=== PATIENT | female | born 1975 | race Two or more races ===

== ENCOUNTER 2017-09-02 17:13 | Emergency (ER) | payer SELFPAY ==
[2017-09-02 17:19] VITALS: BP 154/100
[2017-09-02 18:26] LABS: Basophils # (auto) 0.2 uL; Eosinophils # (auto) 0.1 uL; Hemoglobin 13.6 g/dL (12.2-16.2); Lymphocytes # (auto) 1.9 uL; Monocytes # (auto) 0.3 uL; Neutrophils # (auto) 4.2 uL; Nucleated Red Blood Cells % 0.1 %
[2017-09-02 18:29] LABS: Basophils % (auto) 2.3 % (0.0-2.0); Eosinophils % (auto) 1.2 % (0.0-7.0); Hematocrit 41.9 % (36.0-46.0); Mean Corpuscular Hemoglobin 27.1 pg (28.0-32.0); Mean Corpuscular Hgb Conc. 32.5 g/dL (32.0-36.0); Mean Corpuscular Volume 83.5 fL (80.0-100.0); Mean Platelet Volume 7.1 fL (6.9-10.8); Monocytes % (auto) 4.9 % (0.0-12.0); Neutrophils % (auto) 63.6 % (37.0-80.0); Platelet Count (auto) 407 10^3/uL (140-450); Red Cell Distribution Width 18.9 % (11.8-14.3); White Blood Cell 6.6 10^3/uL (4.4-10.8)
[2017-09-02 18:45] LABS: Albumin 3.5 g/dL (3.4-5.0); BUN/Creatinine Ratio 16.9; Calcium 7.8 mg/dL (8.5-10.1); Potassium 3.6 mmol/L (3.5-5.1)
[2017-09-02 18:50] LABS: Bilirubin, Total 0.2 mg/dL (0.2-1.0)
[2017-09-02] MEDS ORDERED: NICOTINE 21MG/24 HR TOPICAL PATCH TD ONE (19:45)
[2017-09-02] MEDS ORDERED: SODIUM CHLORIDE 0.9% 1,000 ML IV ONE (20:00)
[2017-09-02] MEDS ORDERED: PANTOPRAZOLE 40 MG/10 ML VIAL IV ONE (20:15)
[2017-09-02] MEDS ORDERED: ONDANSETRON HCL 4 MG/2 ML VIAL IV ONE (20:15)
[2017-09-02] MEDS ORDERED: ALUM & MAG HYDROX-SIMETH LIQ(MAALOX) 30 ML PO ONE (20:15)
== END 2017-09-02 20:07 | disposition left against medical advice (07) ==
LOC: ER 17:21
DX: F10.129 Alcohol abuse with intoxication, unspecified (principal); R42 Dizziness and giddiness
CPT/HCPCS: 36415; 70450; 80053; 80320; 84702; 85025; 93005